=== PATIENT | female | born 1965 | race Caucasian/White ===

== ENCOUNTER → 2018-10-03 | Outpatient (CLI) | payer OTHER ==
--- NOTE | ~2018-10-03 | SLEEP ---
[address] [address] SLEEP STUDY REPORT Name: TIMMY BRANDT Room: [facility]#: [id number] Admission: 10/03/18 Attend Phys: Elsa Cesar Discharge: Date of : 69 Report #: [id number] THIS REPORT FOR: //name// CC: ELSA Roth This study has been reviewed in its entirety by a board certified sleep specialist DATE OF SERVICE: 10/04/2018 REFERRED BY: Elsa Cesar, nurse practitioner. The patient is a 53-year-old who weighs 182 pounds with a BMI of 38.9. The patient's Toledo score was 18. The patient underwent home sleep study performed by [facility]. Total recording time was 372 minutes. During the night study, the patient had no central or mixed apneas. There were 9 obstructive apneas and 42 hypopneas. The patient's apnea hypopnea index was 8.2 per hour with a supine index of 7.2 per hour. Nocturnal oximetry study revealed an average oxygen saturation of 91% with a lowest of 81%. Fourteen minutes were spent at an oxygen saturation less than 90%. Mean heart rate was 63 beats per minute. IMPRESSION: 1. Mild sleep apnea-hypopnea syndrome with an AHI of 8.2 per hour. 2. Mild nocturnal hypoxia secondary to obstructive sleep apnea. RECOMMENDATIONS: 1. The patient has mild sleep apnea that the patient is very clinically symptomatic with an Toledo score of 18 suggesting severe subjective hypersomnia. I would recommend treating the patient's sleep apnea with either a trial of CPAP titration versus an oral appliance. 2. Once the patient is optimally treated, then follow up in 4-6 weeks to assess compliance with treatment and to document clinical improvement. 3. Avoid MANAGER OF PRODUCT depressants. 4. Weight loss to ideal [place] [address] SLEEP STUDY REPORT Name: TIMMY BRANDT Room: [facility]#: [id number] Admission: 10/03/18 Attend Phys: Elsa Cesar Discharge: Date of : 69 Report #: [id number] 5. Cautioned regarding driving until the patient's hypersomnia is resolved with the above recommendations. By: [id number] Mohamud MD /ward
== END ==
LOC: M.SLEEPLAB 10:00
DX: G47.33 Obstructive sleep apnea (adult) (pediatric) (principal); R09.02 Hypoxemia; R53.83 Other fatigue; R06.83 Snoring; R39.198 Other difficulties with micturition; E66.9 Obesity, unspecified; Z68.38 Body mass index [BMI] 38.0-38.9, adult

== ENCOUNTER → 2019-05-15 | Outpatient (CLI) | payer OTHER | LOC: M.RAD 08:16 | DX: M81.0 Age-related osteoporosis without current pathological fracture (principal) ==

== ENCOUNTER → 2019-12-10 | Outpatient (CLI) | payer OTHER ==
[~2019-12-10] MED LIST: ABILIFY 5 MG TAB5 M1 PO; ACETAMINOPHEN500 M1 PO; ADDERALL 20 MG20 M1 PO; BONIVA150 MG PO; CALCIUM500 MG PO; CELEXA 20 MG TA20 MG PO; NAPROSYN500 MG PO; NORVASC5 MG PO; OXYBUTYNIN 5 MG5 M2 PO; TIZANIDINE HCL4 M1 PO; VITAMIN D250 MC1 PO; XANAX 0.5 MG0.5 MG PO
== END ==
LOC: M.PC 00:57
PROVIDERS: ATTEND Physical Medicine & Rehabilitation
DX: M51.37 Other intervertebral disc degeneration, lumbosacral region (principal); M47.26 Other spondylosis with radiculopathy, lumbar region; M54.5 Low back pain; M79.662 Pain in left lower leg; M79.661 Pain in right lower leg

== ENCOUNTER 2020-05-28 15:52 | Emergency (ER) | payer OTHER ==
[~2020-05-28] VITALS: Ht 152.4 cm; Wt 98.0 kg
[2020-05-28 16:53] LABS: ABSOLUTE EOSINOPHILS 0.2 thou/uL (0.0-0.7); ABSOLUTE LYMPHOCYTES 1.5 thou/uL (0.8-5.3); ABSOLUTE MONOCYTES 0.4 thou/uL (0.0-1.2); ABSOLUTE NEUTROPHILS 2.8 thou/uL (1.6-8.1); HEMATOCRIT 30.6 % (37.0-47.0); HEMOGLOBIN 10.2 gm/dL (12.0-15.0); RDW-CV 13.3 % (10.5-14.5); WBC 4.9 thou/uL (4.0-11.0)
[2020-05-28 16:55] LABS: BASOPHILS 0.7 %; EOSINOPHILS 4.3 %; LYMPHOCYTES 30.5 %; MCH 31.2 pg (26.0-34.0); MCHC 33.2 g/dL (28.0-37.0); MCV 93.8 fL (80.0-100.0); MONOCYTES 8.1 %; MPV 6.9 fl. (7.2-11.1); NUCLEATED RBCS 0 /100WBC; PLATELET COUNT* 339 thou/uL (150-400); POLYS 56.4 %; RBC 3.26 mil/uL (4.20-5.00)
[2020-05-28 17:07] LABS: CALCIUM 8.8 mg/dL (8.5-10.1); CREATININE 1.1 mg/dL (0.6-1.3); POTASSIUM 3.8 mmol/L (3.5-5.1)
[2020-05-28 17:12] LABS: ALBUMIN 3.8 g/dL (3.4-5.0); MAGNESIUM 2.3 mg/dL (1.8-2.4); TOTAL BILIRUBIN 0.2 mg/dL (<0.1-1.0); TOTAL PROTEIN 7.1 g/dL (6.4-8.2)
[2020-05-28 19:01] VITALS: BP 132/86
--- NOTE | 2020-05-29 11:16 | EKG ---
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
== END 2020-05-28 19:01 | disposition home or self-care (01) ==
LOC: M.ERS 15:52
PROVIDERS: Nurse Practitioner Family
DX: R07.89 Other chest pain (principal); M79.602 Pain in left arm; M79.18 Myalgia, other site; M19.90 Unspecified osteoarthritis, unspecified site; Z90.710 Acquired absence of both cervix and uterus

== ENCOUNTER 2020-06-04 11:10 | Emergency (ER) | payer OTHER ==
[~2020-06-04] VITALS: Ht 162.6 cm; Wt 74.8 kg
[2020-06-04] MEDS ORDERED: GABAPENTIN600 M1 PO (11:19)
[2020-06-04 11:50] LABS: ABSOLUTE BASOPHILS 0.1 thou/uL (0.0-0.2); ABSOLUTE EOSINOPHILS 0.2 thou/uL (0.0-0.7); ABSOLUTE MONOCYTES 0.4 thou/uL (0.0-1.2); ABSOLUTE NEUTROPHILS 4.8 thou/uL (1.6-8.1); BASOPHILS 0.9 %; EOSINOPHILS 2.4 %; HEMATOCRIT 30.3 % (37.0-47.0); HEMOGLOBIN 10.2 gm/dL (12.0-15.0); LYMPHOCYTES 16.1 %; MCH 31.3 pg (26.0-34.0); MCHC 33.8 g/dL (28.0-37.0); MCV 92.8 fL (80.0-100.0); MPV 7.1 fl. (7.2-11.1); NUCLEATED RBCS 0 /100WBC; PLATELET COUNT* 356 thou/uL (150-400); POLYS 74.6 %; RBC 3.26 mil/uL (4.20-5.00); RDW-CV 13.1 % (10.5-14.5); WBC 6.4 thou/uL (4.0-11.0)
[2020-06-04 11:56] LABS: CALCIUM 9.1 mg/dL (8.5-10.1); POTASSIUM 4.3 mmol/L (3.5-5.1)
[2020-06-04 12:01] LABS: ALBUMIN 3.8 g/dL (3.4-5.0); TOTAL BILIRUBIN 0.3 mg/dL (<0.1-1.0); TOTAL PROTEIN 7.1 g/dL (6.4-8.2)
[2020-06-04 12:17] VITALS: BP 133/72
--- NOTE | 2020-06-04 15:32 | EKG ---
[place] [address] ELECTROCARDIOGRAM REPORT Name: TIMMY BRANDT Room: [facility]#: [id number] Admission: 06/04/20 Attend Phys: Discharge: 06/04/20 Date of : 69 Date of Service: 06/04/20 1138 Report #: [id number] THIS REPORT FOR: //name// [facility] ED Test Date: 2020-06-04 Test Time: 11:38:51 Pat Name: TIMMY BRANDT Department: Room: Gender: E Learning Manager: GUILLAUME : 1965 Requested By: Krzysztof Daniel Order Number: [id number] : Carlos Devine Measurements Intervals [place] Rate: 73 P: 32 OR: 156 QRS: 26 QRSD: 96 T: 23 QT: 392 QTc: 432 Interpretive Statements Sinus rhythm Compared to ECG 05/28/2020 16:38:16 No significant changes Electronically Signed On 06-04-2020 15:31:58 BAR TACKER SEWING MACHINE by Carlos Devine [email or web address] <ELECTRONICALLY SIGNED> By: Carlos Devine MD, [facility] 06/04/20 1531 1138 1138 Carlos Devine MD, FAC /EPI
== END 2020-06-04 12:18 | disposition home or self-care (01) ==
LOC: M.ERS 11:10
PROVIDERS: Emergency Medicine Emergency Medical Services
DX: R42 Dizziness and giddiness (principal); T42.6X5A Adverse effect of other antiepileptic and sedative-hypnotic drugs, initial encounter; Z90.710 Acquired absence of both cervix and uterus; Z79.899 Other long term (current) drug therapy; Y92.89 Other specified places as the place of occurrence of the external cause